=== PATIENT | male | born 1960 | race Caucasian/White ===

== ENCOUNTER → 2016-09-06 | Outpatient (CLI) | payer BC ==
[~2016-09-06] VITALS: Ht 177.8 cm; Wt 120.7 kg
[2016-09-06] VITALS (10 sets, daily range): BP systolic 112–140; BP diastolic 75–91; PULSE 73–102
[~2016-09-06] MED LIST: ALEVE 220MG220 MG PO; MOBIC15 MG PO; NORCO 325 MG-51 TAB PO; PREDNISONE20 MG PO; PROSCAR 5MG5 MG PO; TYLENOL 325MG325 MG PO; ZYLOPRIM 300MG300 MG PO
== END ==
LOC: COL.RAD 09:08
DX: R59.0 Localized enlarged lymph nodes (principal)
CPT/HCPCS: 26396

== ENCOUNTER 2016-09-17 10:48 | Day surgery (SDC) | payer BC ==
[~2016-09-17] VITALS: Ht 175.3 cm; Wt 120.3 kg
[~2016-09-17 10:48] MED LIST changes: -ALEVE 220MG220 MG PO; -NORCO 325 MG-51 TAB PO; -PREDNISONE20 MG PO; -TYLENOL 325MG325 MG PO
[2016-09-17 12:25] VITALS: BP 146/84; PULSE 110; TEMP 99
[2016-09-17] MEDS ORDERED: TYLENOL 325MG325 MG PO (12:57)
[2016-09-17] MEDS ORDERED: ALEVE 220MG220 MG PO (12:57)
[2016-09-17] MEDS ORDERED: PREDNISONE20 MG PO (12:58)
[2016-09-17 14:40] VITALS: BP 131/65; PULSE 108; TEMP 99.2
[2016-09-17 14:55] VITALS: BP 114/59; PULSE 105
[2016-09-17 15:10] VITALS: BP 124/64; PULSE 101
[2016-09-17] MEDS ORDERED: NORCO 325 MG-51 TAB PO (15:14)
[2016-09-17 15:25] VITALS: BP 126/67; PULSE 100
== END 2016-09-17 15:35 | disposition home or self-care (01) ==
LOC: SDCO 10:48
DX: C81.90 Hodgkin lymphoma, unspecified, unspecified site (principal); M10.9 Gout, unspecified; N40.0 Benign prostatic hyperplasia without lower urinary tract symptoms; Z79.899 Other long term (current) drug therapy
CPT/HCPCS: C1788; J0690; J1644; J2704; J3010; J7120

== ENCOUNTER 2016-09-24 12:10 | Day surgery (SDC) | payer BC ==
[~2016-09-24] VITALS: Ht 175.3 cm; Wt 116.1 kg
[~2016-09-24 12:10] MED LIST changes: +ALEVE 220MG220 MG PO; +NORCO 325 MG-51 TAB PO; +PREDNISONE20 MG PO; +TYLENOL 325MG325 MG PO
[2016-09-24 13:22] VITALS: BP 125/76; PULSE 112; TEMP 97.6
[2016-09-24 17:45] VITALS: BP 105/44; PULSE 86
[2016-09-24 18:00] VITALS: BP 106/59; PULSE 60
[2016-09-24 18:14] VITALS: TEMP 97.2
[2016-09-24 18:15] VITALS: BP 119/79; PULSE 83
[2016-09-24 18:36] VITALS: BP 113/74; PULSE 93
== END 2016-09-24 19:38 | disposition home or self-care (01) ==
LOC: SDCO 12:10 → SURG 17:50 → SDCO 19:38
DX: C81.11 Nodular sclerosis Hodgkin lymphoma, lymph nodes of head, face, and neck (principal)
CPT/HCPCS: OP; J0690; J1100; J1885; J2405; J2704; J2765; J3010; J7120

== ENCOUNTER → 2018-10-30 | Outpatient (CLI) | payer BC ==
[2018-10-30] VITALS (18 sets, daily range): BP systolic 83–128; BP diastolic 54–90; PULSE 67–87
[~2018-10-30] VITALS: Ht 175.3 cm; Wt 114.1 kg
[~2018-10-30] MED LIST changes: +MULTI VITAMINS1 TAB PO; +TOPROL XL 25MG25 MG PO; +TYLENOL 500MG500 MG PO; +VITAMIN C500 MG PO; +ZITHROMAX500 M2 PO
--- NOTE | 2018-10-30 12:45 | NUR ---
PT TAKEN TO CT, PLACED ON TABLE AND MONITORING EQUIPMENT PLACED. IMAGES TAKEN AND SENT TO . PT COMFORTABLE
--- NOTE | 2018-10-30 13:25 | NUR ---
PT REPOSITIONED TO STOMACH.
--- NOTE | 2018-10-30 13:35 | NUR ---
DR SALGADO INFORMED OF PT BLOOD PRESSURE
--- NOTE | 2018-10-30 14:00 | NUR ---
SAMPLES TAKEN AND PLACED INTO FORMALIN AND THEN RPMI ALTERNATIVELY. PT ABLE TO SIT UP ON HIS OWN. ASSISTED INTO WHEELCHAIR THEN TAKEN TO [facility].
--- NOTE | 2018-10-30 14:10 | NUR ---
FAMILY BROUGHT INTO ROOM TO STAY WITH PT.
== END ==
LOC: COL.RAD 11:54
DX: C81.18 Nodular sclerosis Hodgkin lymphoma, lymph nodes of multiple sites (principal); R93.5 Abnormal findings on diagnostic imaging of other abdominal regions, including retroperitoneum

== ENCOUNTER 2018-11-24 05:26 | Day surgery (SDC) | payer BC ==
[~2018-11-24] VITALS: Ht 175.3 cm; Wt 116.7 kg
[2018-11-24 05:51] VITALS: BP 113/80; PULSE 85; TEMP 97.6
[2018-11-24] MEDS ORDERED: MEN'S ONE DAIL1 EACH PO (06:10)
[2018-11-24] MEDS ORDERED: LOPRESSOR 225 MG/TAB PO (06:10)
[2018-11-24] MEDS ORDERED: CLARITIN 1010 MG/TAB PO (06:12)
[2018-11-24 08:05] VITALS: BP 97/54; PULSE 71; TEMP 97.3
--- NOTE | 2018-11-24 08:05 | NUR ---
The patient arrived back to [place] [facility] from the operating room and appears alert and oriented at this time. The patient denies any pain or nausea at this time. The patient's post operative vital signs were started at this time. The patient's incisions to his left neck and chest are covered with lopez set and appear without redness or edema. The patient agrees to try some orange juice and jello at this time. Call light is within reach. Will continue to monitor the patient.
[2018-11-24 08:20] VITALS: BP 102/54; PULSE 70
--- NOTE | 2018-11-24 08:20 | NUR ---
The patient appears to be tolerating the food and drink well. The patient's was brought back to be at his beside. Call light remains within reach. Will continue to monitor the patient.
[2018-11-24 08:35] VITALS: BP 99/64; PULSE 63
--- NOTE | 2018-11-24 08:35 | NUR ---
The patient has finished his food and drink and denies wanting anything further at this time. Th patient voices a desire to be discharged home. Vital signs appear stable.
[2018-11-24] MEDS ORDERED: NORCO 325 MG-51 TAB PO (08:36)
[2018-11-24 08:50] VITALS: BP 103/64; PULSE 60
--- NOTE | 2018-11-24 08:50 | NUR ---
Discharge instructions were reviewed with the patient and his at this time. They both verbalized understanding and have no questions for the nurse at this time. The patient's IV to his right forerm was removed and a pressure dressing was applied to the site. The nurse instructed the patient to get dressed and notify the staff when he is ready to be ecorted out.
--- NOTE | 2018-11-24 09:00 | NUR ---
The patient was escorted out via wheelchair to a private vehicle by SABRA Arizmendi. The patient's belongings and discharge paperwork were sent with him. The patient's is present to drive him home.
== END 2018-11-24 09:00 | disposition home or self-care (01) ==
LOC: SDCO 05:26
DX: C81.90 Hodgkin lymphoma, unspecified, unspecified site (principal); E66.9 Obesity, unspecified; Z68.37 Body mass index [BMI] 37.0-37.9, adult; Z79.52 Long term (current) use of systemic steroids
CPT/HCPCS: C1788; J0690; J1644; J1720; J2370; J2704; J3010; J7120

== ENCOUNTER → 2023-11-18 | Outpatient (CLI) | payer BC ==
[~2023-11-18] MED LIST changes: +CLARITIN 1010 MG/TAB PO; +Iohexol 300 - 100 ML VIAL IV ONE; +LOPRESSOR 225 MG/TAB PO; +MEN'S ONE DAIL1 EACH PO; +NS 100 ML IV SCH
== END ==
LOC: COL.RAD 08:17
DX: K80.20 Calculus of gallbladder without cholecystitis without obstruction (principal); K74.60 Unspecified cirrhosis of liver; C81.18 Nodular sclerosis Hodgkin lymphoma, lymph nodes of multiple sites
CPT/HCPCS: J1644; Q9967